=== PATIENT | male | born 1980 | race Caucasian/White ===

== ENCOUNTER 2024-08-09 12:08 | Emergency (ER) | payer MEDICARE, SELFPAY ==
[2024-08-09 12:08] VITALS: BMI 25.8
--- NOTE | 2024-08-09 13:00 | ED.GENMED ---
History of Present Illness
<Andrew Estrella PA-C - Last Filed: 08/09/24 15:14>
General
Chief Complaint: Abdominal Symptoms
Source: patient
Exam Limitations: none
Time Seen by Provider: 08/09/24 12:44
History of Present Illness
History of Present Illness:
44-year-old male presents with 5 days worth of nausea vomiting and dry heaves mainly at night. This wakes him up from sleep. He denies abdominal pain chest pain or shortness of breath. He drinks about 40 ounces of coffee daily. He denies alcohol
use. He does admit to recent marijuana use. He notes when he vomits and dry heaves he has pressure in his head. Initially seen at the urgent care and sent here for further evaluation
Past History
<Andrew Estrella PA-C - Last Filed: 08/09/24 15:14>
Past History
ED Past Medical History: Asthma and Other (substance abuse)
ED Past Surgical History: None
Social History
Tobacco: Smoker
Alcohol: None
Drug: Former user
Personal: Single
Living: with family
Employment: Employed
Family History
Family History: Diabetes
Phy Exam
<SIVAN Morales Last Filed: 08/09/24 15:14>
Physical Exam
Physical Exam:
General: Well-appearing male no acute respiratory distress
HEENT: Normocephalic atraumatic
Heart: Regular rate and rhythm no murmurs
Lungs: Clear no wheeze
Abdomen is soft nontender nondistended no guarding rebound normal bowel sounds
Extremities: No cyanosis or edema
Skin: Warm no rash
Course
<SIVAN Morales Last Filed: 08/09/24 15:14>
Orders/Labs/Results
Orders:
Orders
08/09/24 13:00
0.9% Sodium Chloride 1000 ml [Nss] 1,000 ml IV BOLUS
Famotidine [Pepcid] 20 mg IV NOW STA
08/09/24 13:19
CMP [Comprehensive Metabolic Panel] Urgent
Complete Blood Count/With Diff Urgent
Lipase Urgent
08/09/24 14:16
US Abdomen Complete/Upper Urgent
Comment:
Reason For Exam: nausea, elevated LFT
Abnormal Lab Results
08/09/24
13:19
MCH 32.2 H pg
(27.0-31.0)
RDW 11.1 L %
(11.5-14.5)
MPV 11.1 H fL
(7.4-10.4)
Absolute Monos (auto) 0.7 H 10^3/uL
(0.1-0.6)
Sodium 133 L mmol/L
(135-145)
Chloride 91 L mmol/L
(98-107)
Carbon Dioxide 32 H mmol/L
(22-30)
Creatinine 0.5 L mg/dL
(0.7-1.3)
Glucose 309 H mg/dl
(70-99)
AST 241 H U/L
(17-59)
ALT 199 H U/L
(0-50)
Alkaline Phosphatase 135 H U/L
(38-126)
08/09/24 13:19
08/09/24 13:19
Vital Signs
Initial and Last Documented VS:
Initial Vital Signs
Pulse Resp Pulse Ox
61 15 92
08/09/24 13:22 08/09/24 13:22 08/09/24 13:22
Last Documented Vital Signs
Temp Pulse Resp BP Pulse Ox
97.6 F 86 20 146/71 94
08/09/24 17:02 08/09/24 17:02 08/09/24 17:02 08/09/24 17:02 08/09/24 17:02
<Aquiles Aguiar PA-C - Last Filed: 08/09/24 17:23>
Orders/Labs/Results
Orders:
Orders
08/09/24 13:00
0.9% Sodium Chloride 1000 ml [Nss] 1,000 ml IV BOLUS
Famotidine [Pepcid] 20 mg IV NOW STA
08/09/24 13:19
CMP [Comprehensive Metabolic Panel] Urgent
Complete Blood Count/With Diff Urgent
Lipase Urgent
08/09/24 14:16
US Abdomen Complete/Upper Urgent
Comment:
Reason For Exam: nausea, elevated LFT
Abnormal Lab Results
08/09/24
13:19
MCH 32.2 H pg
(27.0-31.0)
RDW 11.1 L %
(11.5-14.5)
MPV 11.1 H fL
(7.4-10.4)
Absolute Monos (auto) 0.7 H 10^3/uL
(0.1-0.6)
Sodium 133 L mmol/L
(135-145)
Chloride 91 L mmol/L
(98-107)
Carbon Dioxide 32 H mmol/L
(22-30)
Creatinine 0.5 L mg/dL
(0.7-1.3)
Glucose 309 H mg/dl
(70-99)
AST 241 H U/L
(17-59)
ALT 199 H U/L
(0-50)
Alkaline Phosphatase 135 H U/L
(38-126)
08/09/24 13:19
08/09/24 13:19
Vital Signs
Initial and Last Documented VS:
Initial Vital Signs
Pulse Resp Pulse Ox
61 15 92
08/09/24 13:22 08/09/24 13:22 08/09/24 13:22
Last Documented Vital Signs
Temp Pulse Resp BP Pulse Ox
97.6 F 86 20 146/71 94
08/09/24 17:02 08/09/24 17:02 08/09/24 17:02 08/09/24 17:02 08/09/24 17:02
<Aquilse Aguiar PA-C - Last Filed: 08/09/24 17:23>
*Radiology
Radiology exam reviewed: radiology read reviewed
*Pulse Oximetry
Patient hypoxic: no
*Critical Care Note
Total Time (30-74mins, 75-104mins- exclusive of procedures): Not Applicable
<Aquiles Aguiar PA-C - Last Filed: 08/09/24 17:23>
Patient Management
Escalation/DeEscalation of care consider admission/obs:
Patient received in signout pending ultrasound results and reevaluation.
Patient's ultrasound shows hepatic steatosis but no evidence for biliary obstruction or cholecystitis. Patient was reevaluated and notes that he is feeling much better. He was advised on his liver function testing. Potentially reactive to the
amount of vomiting that he has had over the last week. I encouraged the patient to follow-up closely with his primary care doctor and have repeat labs done within 1 to 2 weeks. Aware of return precautions to the ER. Otherwise stable for discharge
home. Prescription for Zofran sent to pharmacy.
<Andrew Estrella PA-C - Last Filed: 08/09/24 15:14>
Update Note
Update Note:
Nausea vomiting for last 5 days. No abdominal pain. Consider viral illness versus reflux vs pancreatitis vs medication reaction
Check labs. Fluids ordered. Pepcid ordered
ED Attending Note
<Andrew Estrella PA-C - Last Filed: 08/09/24 15:14>
-
Portions of this chart may have been created with voice recognition software.� Occasional wrong word or��sound alike� substitutions may have occurred due to the inherent limitations of voice recognition software.
Discharge Plan
Departure
Patient Disposition: Home (Routine Discharge)
Date of Disposition: 08/09/24
Time of Disposition: 16:30
Patient with high blood pressure during this ER visit?: No
Discharge Problem:
Nausea and vomiting, Transaminitis
Instructions: Nausea and Vomiting, Adult (DC)
Prescriptions:
New
ondansetron 4 mg tablet,disintegrating
4 mg PO Q8H PRN (Reason: nausea and vomiting) Qty: 10 0RF
No Action
methadone [Methadose] 10 MG/ML concentrate
325 mg PO DAILY
Patient Comments:
waiting for methadone clinic to open 05/09/22 @0530am to comfirm dose
acetaminophen 325 MG tablet
650 mg PO Q4HPRN PRN (Reason: fever)
multivitamin with folic acid [Tab-A-Cris] 1 TABLET tablet
1 tab PO DAILY
Referrals:
NONE,* [Family Provider] -
Activity Restrictions/Additional Instructions:
Please follow-up with your family doctor within the next 1 to 2 weeks to have repeat liver function testing done. You may return to the emergency department at any time if symptoms persist.
Interventions
Interventions:
*Risk Screen - Suicide Last Done: 08/09/24 12:08
*General Assessment Last Done: 08/09/24 13:35
*Neglect/Abuse Screening Last Done: 08/09/24 12:14
ED- Fall Risk Assessment Last Done: 08/09/24 13:35
*ED COVID-19 Vaccine History Last Done: 08/09/24 13:35
*Nursing Disposition Last Done: 08/09/24 17:02
WU-Ifvysu-Cltuzemhaw Assessment Last Done: 08/09/24 13:35
Discharge Date and Time
Discharge Date/Time: 08/09/24 17:03
Print Language: HUNGARIAN
[2024-08-09] MEDS: PEPCID 20 MG IV (13:20)
[2024-08-09] MEDS: NSS 1000 IV (13:20)
[2024-08-09 13:35] VITALS: BP 117/81
[2024-08-09 13:36] LABS: Hematocrit 43.4 % (39.0-52.0); Hemoglobin 15.5 g/dL (13.0-18.0); Mean Corp Hgb Conc. 35.7 g/dL (33.0-37.0); Mean Corpuscular Hgb 32.2 pg (27.0-31.0); Red Blood Cell Count 4.82 10^6/uL (4.70-6.10); White Blood Cell Count 8.3 10^3/uL (4.8-10.8)
[2024-08-09 13:37] LABS: Mean Platelet Volume 11.1 fL (7.4-10.4); Platelet Count 269 10^3/uL (130-400); Red Cell Dist. Width 11.1 % (11.5-14.5)
[2024-08-09 13:45] LABS: ALT (SGPT) 199 U/L (0-50); AST (SGOT) 241 U/L (17-59); Albumin 4.6 g/dl (3.5-5.0); Alkaline Phosphatase 135 U/L (38-126); Blood Urea Nitrogen 12 mg/dl (9-20); Calcium 9.7 mg/dl (8.4-10.2); Carbon Dioxide 32 mmol/L (22-30); Chloride 91 mmol/L (98-107); Estimated Creatinine Clearance > 125 ml/min; Glucose 309 mg/dl (70-99); Lipase 43 U/L (23-300); Potassium 4.3 mmol/L (3.5-5.1); Sodium 133 mmol/L (135-145); Total Bilirubin 0.5 mg/dl (0.2-1.3); Total Protein 7.4 g/dl (6.3-8.2); eGFR > 60.00
[2024-08-09 13:46] LABS: % Basophils 0.5 % (0-2); % Immature Granulocytes 0.2 % (0-0.5); % Lymphocytes 32.5 % (20.5-51.1); % Monocytes 8.4 % (1.7-9.3); % Neutrophils 57.4 % (42.2-75.2); Absolute Eosinophils 0.1 10^3/uL (0-0.7); Absolute Lymphocytes 2.7 10^3/uL (1.2-3.4); Absolute Monocytes 0.7 10^3/uL (0.1-0.6); Absolute Neutrophils 4.8 10^3/uL (1.4-6.5); Nucleated Red Blood Cells % 0 % (-)
[2024-08-09 14:00] VITALS: BP 118/72
[2024-08-09 17:02] VITALS: BP 146/71
== END 2024-08-09 17:03 | disposition home or self-care (01) ==
LOC: EMR 12:08
PROVIDERS: Emergency Medicine; EMERGENCY PHYSICIAN Student in an Organized Health Care Education/Training Program
DX: R11.2 Nausea with vomiting, unspecified (principal); R74.01 Elevation of levels of liver transaminase levels; J45.909 Unspecified asthma, uncomplicated; F17.200 Nicotine dependence, unspecified, uncomplicated; Z83.3 Family history of diabetes mellitus
CPT/HCPCS: 99284; 96374; 96361; 76700; 80053; 83690; 85025

== ENCOUNTER 2024-08-13 09:09 | Emergency (ER) | payer MEDICARE, SELFPAY ==
[2024-08-13 09:22] VITALS: BP 117/71
--- NOTE | 2024-08-13 10:42 | ED.GENMED ---
History of Present Illness
General
Chief Complaint: Abdominal Symptoms
Source: patient
Exam Limitations: none
Time Seen by Provider: 08/13/24 10:35
History of Present Illness
History of Present Illness:
44-year-old male presents for reevaluation. He was here a week ago with nausea vomiting dry heaves now presents with persistent headache certainly worse when he is dry heaving. He also notes excessive mucus production from his lungs. He does have
a history of asthma. He is a smoker. He was found to have elevated LFTs last visit and showed fatty liver on ultrasound. He is concerned about another process going in his head that is causing his headache. He denies a fever or neck pain. No
vision change. No photosensitivity. Headache is gradual in onset. No other complaints
Past History
Past History
ED Past Medical History: Asthma and Other (substance abuse)
ED Past Surgical History: None
Social History
Tobacco: Smoker
Alcohol: None
Drug: Former user
Personal: Single
Living: with family
Employment: Employed
Family History
Family History: Diabetes
Phy Exam
Physical Exam
Physical Exam:
General: Well-appearing male no acute respiratory distress
HEENT: Normocephalic pupils equal round reactive to light face is symmetric neck is supple
Heart: Regular rate and rhythm lungs: Wheeze bilaterally
Abdomen is soft nontender nondistended
Extremities: No cyanosis
Skin: Warm no rash
Course
Orders/Labs/Results
Orders:
Orders
08/13/24 10:41
CT Head W/o Iv Contrast Urgent
Comment:
Reason For Exam: headache
0.9% Sodium Chloride 1000 ml [Nss] 1,000 ml IV BOLUS
Diphenhydramine [Benadryl] 25 mg IV NOW STA
Prochlorperazine [Compazine] 10 mg IV NOW STA
08/13/24 10:47
COVID-19 Antigen Urgent
Source: Nasal Swab
Complete Blood Count/With Diff Urgent
Comprehensive Metabolic Panel Urgent
Lipase Urgent
Monotest Urgent
08/13/24 13:02
Add On- LAB Urgent
Tests Added?: hgb a1c
Abnormal Lab Results
08/13/24
10:47
MCH 32.3 H pg
(27.0-31.0)
RDW 11.1 L %
(11.5-14.5)
MPV 11.2 H fL
(7.4-10.4)
Sodium 134 L mmol/L
(135-145)
Chloride 95 L mmol/L
(98-107)
Creatinine 0.4 L mg/dL
(0.7-1.3)
Glucose 351 H mg/dl
(70-99)
AST 158 H U/L
(17-59)
ALT 173 H U/L
(0-50)
Alkaline Phosphatase 166 H U/L
(38-126)
08/13/24 10:47
08/13/24 10:47
Vital Signs
Initial and Last Documented VS:
Initial Vital Signs
Temp Pulse Resp BP Pulse Ox
98.3 F 66 18 117/71 95
08/13/24 09:22 08/13/24 09:22 08/13/24 09:22 08/13/24 09:22 08/13/24 09:22
Last Documented Vital Signs
Temp Pulse Resp BP Pulse Ox
98.3 F 66 18 126/86 95
08/13/24 09:22 08/13/24 09:22 08/13/24 09:22 08/13/24 11:00 08/13/24 09:22
MDM/Problems Addressed
Differential Diagnosis Includes:
Persistent fatigue headache nausea vomiting cough and wheeze. Question underlying viral illness. Patient describes gradual onset headache but will obtain CT of head to evaluate for any swelling or bleeding. Check labs again to recheck liver
functions. Will check for COVID order chest x-ray treat with Compazine Benadryl and fluids.
*Critical Care Note
Total Time (30-74mins, 75-104mins- exclusive of procedures): Not Applicable
Update Note
Update Note:
CT without acute findings labs reviewed demonstrates a serum glucose of 351. No prior diagnosis of diabetes. Recheck of labs from last visit also showed hyperglycemia. This may be affecting some of the patient's symptoms. He does note polyuria
and polydipsia recently. Will prescribe metformin. He states he is out of his albuterol nebulizer solution will prescribe this as well. Have him follow-up with family doctor
ED Attending Note
-
Portions of this chart may have been created with voice recognition software.� Occasional wrong word or��sound alike� substitutions may have occurred due to the inherent limitations of voice recognition software.
Discharge Plan
Departure
Patient Disposition: Home (Routine Discharge)
Date of Disposition: 08/13/24
Time of Disposition: 13:40
Patient with high blood pressure during this ER visit?: No
Discharge Problem:
Hyperglycemia
Instructions: Nausea and Vomiting, Adult (DC), Diabetes and diet
Prescriptions:
New
metformin 500 mg tablet
500 mg PO DAILY Qty: 30 0RF
albuterol sulfate 2.5 mg /3 mL (0.083 %) solution for nebulization
2.5 mg inhalation Q6H PRN (Reason: bronchospasm) Qty: 75 0RF
No Action
methadone [Methadose] 10 MG/ML concentrate
325 mg PO DAILY
Patient Comments:
waiting for methadone clinic to open 05/09/22 @0530am to comfirm dose
acetaminophen 325 MG tablet
650 mg PO Q4HPRN PRN (Reason: fever)
multivitamin with folic acid [Tab-A-Cris] 1 TABLET tablet
1 tab PO DAILY
ondansetron 4 mg tablet,disintegrating
4 mg PO Q8H PRN (Reason: nausea and vomiting) Qty: 10 0RF
Referrals:
NONE,* [Family Provider] -
Activity Restrictions/Additional Instructions:
As discussed, your blood sugars are high. Please start metformin 500 mg. Return here for worsening symptoms otherwise follow-up with your family doctor
Interventions
Interventions:
*Risk Screen - Suicide Last Done: 08/13/24 09:22
*General Assessment Last Done: 08/13/24 09:22
*Neglect/Abuse Screening Last Done: 08/13/24 09:22
ED- Fall Risk Assessment Last Done: 08/13/24 10:35
*ED COVID-19 Vaccine History Last Done: 08/13/24 10:35
CC-Xvgfck-Sttretckdl Assessment Last Done: 08/13/24 10:37
ED- Neurological Assessment Last Done: 08/13/24 10:37
Discharge Date and Time
Print Language: ARMENIAN
[2024-08-13 10:47] VITALS: BMI 26.2
[2024-08-13 10:52] VITALS: BP 133/90
[2024-08-13] MEDS: NSS 1000 IV (10:53)
[2024-08-13] MEDS: COMPAZINE 10 MG IV (10:53)
[2024-08-13] MEDS: BENADRYL 25 MG IV (10:53)
[2024-08-13 11:00] VITALS: BP 126/86
[2024-08-13 11:01] LABS: % Basophils 0.4 % (0-2); % Eosinophils 0.8 % (0-6); % Immature Granulocytes 0.3 % (0-0.5); % Lymphocytes 20.6 % (20.5-51.1); % Monocytes 7.4 % (1.7-9.3); % Neutrophils 70.5 % (42.2-75.2); Absolute Eosinophils 0.1 10^3/uL (0-0.7); Absolute Lymphocytes 1.6 10^3/uL (1.2-3.4); Absolute Monocytes 0.6 10^3/uL (0.1-0.6); Absolute Neutrophils 5.6 10^3/uL (1.4-6.5); Hematocrit 45.6 % (39.0-52.0); Mean Corp Hgb Conc. 35.1 g/dL (33.0-37.0); Mean Corpuscular Hgb 32.3 pg (27.0-31.0); Mean Corpuscular Volume 92.1 fL (80.0-94.0); Mean Platelet Volume 11.2 fL (7.4-10.4); Nucleated Red Blood Cells % 0 % (-); Platelet Count 252 10^3/uL (130-400); Red Blood Cell Count 4.95 10^6/uL (4.70-6.10); Red Cell Dist. Width 11.1 % (11.5-14.5); White Blood Cell Count 7.9 10^3/uL (4.8-10.8)
[2024-08-13 11:18] LABS: ALT (SGPT) 173 U/L (0-50); AST (SGOT) 158 U/L (17-59); Albumin 4.6 g/dl (3.5-5.0); Alkaline Phosphatase 166 U/L (38-126); Blood Urea Nitrogen 11 mg/dl (9-20); Calcium 9.6 mg/dl (8.4-10.2); Carbon Dioxide 28 mmol/L (22-30); Chloride 95 mmol/L (98-107); Estimated Creatinine Clearance > 125 ml/min; Glucose 351 mg/dl (70-99); Lipase 47 U/L (23-300); Potassium 4.7 mmol/L (3.5-5.1); Sodium 134 mmol/L (135-145); Total Bilirubin 0.5 mg/dl (0.2-1.3); Total Protein 7.4 g/dl (6.3-8.2); eGFR > 60.00
[2024-08-13 11:21] LABS: COVID-19 Antigen Negative (Negative)
[2024-08-13 11:47] LABS: Monotest Negative (Negative)
[2024-08-14 07:38] LABS: Glycohemoglobin (HgbA1c) 12.6 % (4.0-5.6)
== END 2024-08-13 14:21 | disposition home or self-care (01) ==
LOC: EMR 09:09
PROVIDERS: Physician Assistant; EMERGENCY PHYSICIAN Emergency Medicine
DX: R73.9 Hyperglycemia, unspecified (principal); R51.9 Headache, unspecified; R11.2 Nausea with vomiting, unspecified; R35.89 Other polyuria; R63.1 Polydipsia; Z11.52 Encounter for screening for COVID-19; J45.909 Unspecified asthma, uncomplicated; K76.0 Fatty (change of) liver, not elsewhere classified; F17.200 Nicotine dependence, unspecified, uncomplicated
CPT/HCPCS: 99284; 96374; 96375; 96361; 70450; 80053; 83036; 83690; 85025; 86308; 87811